=== PATIENT | female | born 1975 | race Two or more races ===

== ENCOUNTER 2024-11-29 11:30 | Outpatient (CLI) | payer BC ==
[2024-11-29 12:10] LABS: Hematocrit 50.5 % (36.0-46.0); Hemoglobin 16.9 g/dL (12.2-16.2); Mean Corpuscular Hemoglobin 26.9 pg (28.0-32.0); Mean Corpuscular Volume 80.3 fL (80.0-100.0); Nucleated Red Blood Cells % 0.2 %
[2024-11-29 12:18] LABS: Urine Protein, UAD TRACE (Negative)
[2024-11-29 12:25] LABS: Total Iron Binding Capacity 359.0 ug/dL (250-425)
[2024-11-29 12:26] LABS: Alanine Aminotransferase 19 U/L (7-40); Albumin 4.7 g/dL (3.2-4.8); Alkaline Phosphatase 87 U/L (46-116); Anion Gap 9 (5-15); BUN/Creatinine Ratio 10.4 (10.0-20.0); Bilirubin, Total 0.4 mg/dL (0.2-1.0); Blood Urea Nitrogen 8 mg/dL (9-23); Calcium 9.3 mg/dL (8.7-10.4); Carbon Dioxide 26 mmol/L (20-31); Chloride 102 mmol/L (98-107); Cholesterol 127 mg/dL (< 200); Glucose 88 mg/dL (74-106); HDL Cholesterol 30 mg/dL (40-59); Iron 49.0 ug/dL (50-170); Magnesium 2.0 mg/dL (1.6-2.6); Potassium 3.7 mmol/L (3.5-5.1); Sodium 137 mmol/L (136-145); Total Protein 7.5 g/dL (5.7-8.2); Triglycerides 94 mg/dL (< 150)
[2024-11-29 12:30] LABS: Free T3 3.02 pg/mL (2.3-4.2); Free T4 (Free Thyroxine) 1.17 ng/dL (0.89-1.76)
[2024-11-29 13:15] LABS: Uric Acid 7.1 mg/dL (3.1-7.8)
== END 2024-11-29 17:00 | disposition home or self-care (01) ==
LOC: LAB 11:30
PROVIDERS: ATTEND Family Medicine
DX: L73.2 Hidradenitis suppurativa (principal); R53.83 Other fatigue; Z00.00 Encounter for general adult medical examination without abnormal findings
CPT/HCPCS: 36415; 80053; 80061; 81001; 82306; 82607; 83036; 83540; 83550; 83735; 84439; 84443; 84480; 84481; 84550; 85025; 85652; 86038; 87086